=== PATIENT | female | born 1985 | race Caucasian/White ===

== ENCOUNTER 2017-03-17 12:32 | Emergency (ER) | payer OTHER ==
[~2017-03-17] VITALS: Ht 172.7 cm; Wt 87.5 kg
[2017-03-17 12:40] VITALS: BP 121/85
== END 2017-03-17 13:48 | disposition home or self-care (01) ==
LOC: ED 12:32
DX: H60.93 Unspecified otitis externa, bilateral (principal)

== ENCOUNTER 2020-05-10 17:13 | Emergency (ER) | payer OTHER ==
[~2020-05-10] VITALS: Ht 172.7 cm; Wt 95.3 kg
[2020-05-10 19:20] VITALS: BP 119/75
== END 2020-05-10 19:20 | disposition home or self-care (01) ==
LOC: ED 17:13
DX: O26.893 Other specified pregnancy related conditions, third trimester (principal); O9A.213 Injury, poisoning and certain other consequences of external causes complicating pregnancy, third trimester; M25.512 Pain in left shoulder; M25.552 Pain in left hip; M54.5 Low back pain; Z3A.30 30 weeks gestation of pregnancy; V49.49XA Driver injured in collision with other motor vehicles in traffic accident, initial encounter; Y93.I9 Activity, other involving external motion; Y92.488 Other paved roadways as the place of occurrence of the external cause; Y99.8 Other external cause status
CPT/HCPCS: 82962